=== PATIENT | female | born 1985 | race Caucasian/White ===

== ENCOUNTER 2016-05-01 09:03 | Emergency (ER) | payer OTHER ==
[2016-05-01 09:33] VITALS: BP 123/81; PULSE 83; RESP 16; TEMP 99.1; O2SAT 96
[2016-05-01] MEDS ORDERED: IPRATROPIUM/ALBUTEROL 3 ML DEYVIAL IH ONE (09:48)
--- NOTE | 2016-05-01 09:51 | UCPHY ---
H & P Time Seen by Provider: 05/01/16 09:26 Patient Type: New HPI/ROS: This patient complains of cough and wheeze., 8 days prior to this visit and was diagnosed with a sinus infection at her primary care physician's office this week a started on Levaquin. She has a history of asthma that has been mild and reports use of her albuterol with mild improvement wheezing but persistent frequent cough that is making sleep difficult. ROS: No fevers or chills. HEENT: No significant sore throat. She has mild nasal congestion. No headache. Pulmonary: No pleuritic pain. No respiratory distress. She is not using a spacer with her inhaler. Cardiovascular: No complaints GI: No complaints 10 point ROS is otherwise negative. Smoking Status: Never smoked Physical Exam: Vital signs are normal. General Appearance: Alert, no distress. Eyes: Pupils equal and round no pallor or injection. ENT, Mouth: Mucous membranes moist. Respiratory: Frequent dry cough with minimal expiratory wheeze. No rales or rhonchi Cardiovascular: Regular rate and rhythm. Neurological: Alert with no focal deficits Skin: Warm and dry, no rashes. Musculoskeletal: Neck is supple nontender. Extremities are symmetrical, full range of motion. Psychiatric: Mood and affect are normal DIFFERENTIAL DIAGNOSIS: After history and physical exam differential diagnosis was considered for cough variant asthma exacerbation, bronchitis, doubt pneumonia Constitutional: Initial Vital Signs Temperature (C) 37.3 C 05/01/16 09:23 Heart Rate 83 05/01/16 09:23 Respiratory Rate 16 05/01/16 09:23 Blood Pressure 123/81 H 05/01/16 09:23 O2 Sat (%) 96 05/01/16 09:23 O2 Delivery Mode Room Air Allergies/Adverse Reactions: Sulfa (Sulfonamide Antibiotics) Allergy (Severe, Verified 05/01/16 09:31) Other-Enter Comments sumatriptan [From Imitrex] Allergy (Severe, Verified 05/01/16 09:31) Swelling/neck,face,throat sumatriptan succinate [From Imitrex] Allergy (Severe, Verified 05/01/16 09:31) Swelling/neck,face,throat Home Medications: Medication Instructions Recorded Albuterol 05/01/16 Albuterol Hfa Anes Only [Proair 2 puffs IH Q4 PRN #1 mdi 05/01/16 Hfa Icu (*)] Fluticasone Hfa 220 Mcg [Flovent 2 puffs IH DAILY #1 mdi 05/01/16 220 MCG Hfa MDI (*)] Guaifenesin/Codeine Phosphate 5 - 10 ml PO Q6 PRN #120 ml 05/01/16 [Guaifenesin-Codeine Liquid] Iron 05/01/16 Prozac 20 MG (*) 05/01/16 VITAMIN D 05/01/16 levAQUIN 05/01/16 MDM/Departure - MDM Medications Given: Discontinued Medications Albuterol/Ipratropium (Duoneb) 3 ml IH EDNOW ONE Stop: 05/01/16 09:49 Last Admin: 05/01/16 10:04 Dose: 3 ml ED Course/Re-evaluation: DuoNeb with near resolution of her cough. She felt subjective improvement has good aeration and decreased wheeze thereafter. Discussion: Patient appears very well clinically with very minimal asthma exacerbation manifesting primarily is frequent coughing. I counseled her to use a spacer with her albuterol inhaler and we dispensed 1 for her to use. Wall start her on Flovent steroid inhaler. Guaifenesin with codeine for cough prevents sleep. - Depart Disposition: Home, Routine, Self-Care Clinical Impression: Asthma exacerbation Condition: Good Instructions: Asthma (ED) Additional Instructions: Diagnosis: Asthma exacerbation Plan: Flovent steroid inhaler Albuterol inhaler with spacer for cough, wheeze or shortness of breath Guaifenesin with codeine for cough prevents sleep at night Return for any significant worsening despite the treatment plan or go to the emergency department Prescriptions: Albuterol Hfa Anes Only [Proair Hfa Icu (*)] 2 puffs IH Q4 PRN #1 mdi PRN Reason: Wheezing Fluticasone Hfa 220 Mcg [Flovent 220 MCG Hfa MDI (*)] 2 puffs IH DAILY #1 mdi Guaifenesin/Codeine Phosphate [Guaifenesin-Codeine Liquid] 5 - 10 ml PO Q6 PRN # 120 ml PRN Reason: Cough Referrals: ONEIL RUBIO [Other] - As per Instructions - PQRS PQRS Measurement: NA
== END 2016-05-01 10:20 | disposition home or self-care (01) ==
LOC: CED 09:03
DX: J45.901 Unspecified asthma with (acute) exacerbation (principal)
CPT/HCPCS: G0463-PO